=== PATIENT | male | born 1950 ===

== ENCOUNTER → 2022-05-19 00:56 | Outpatient (CLI) | payer MEDICARE, BC, SELFPAY ==
--- NOTE | 2022-05-19 10:30 | DI.US_ITS ---
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 Estimated ejection fraction is 60%. Wall m otion is normal Normal right ventricular size and systolic function The left atrium is moderately dilated. The right atrium is mildly dilated The aortic valve is calcified. Number of leaflets could not be accurately determined. There was no hemodynamically significant aortic stenosis, no aortic regurgitation Normal mitral valve with mild regurgitation Normal tricuspid valve with moderate regurgitation. Estimated right ventricular systolic pressure is 39 mmHg Dilated ascending aorta measuring 4 cm Wall motion Left Ventricle The left ventricle is normal size. The left ventricular systolic function is normal. The left ventric ular ejection fraction is within the normal range. There is normal left ventricular wall thickness. T here is normal LV segmental wall motion. There is no ventricular septal defect visualized. LVEF is 60 %. Right Ventricle The right ventricle is normal size. The right ventricular systolic function is normal. The RVSP is 38 .8_ mmHg. Atria Left atrium is moderately dilated. Right atrium is mildly dilated. The interatrial septum is intact with no evidence for an atrial septal defect. Aortic Valve Aortic valve is calcified. Aortic valve is trileaflet. There is no aortic valvular stenosis. No aorti c regurgitation is present. Mitral Valve The mitral valve is normal in structure. No evidence of mitral valve stenosis. Mild mitral regurgitat ion. Tricuspid Valve The tricuspid valve is normal in structure. There is no tricuspid valve stenosis. Moderate tricuspid regurgitation. Pulmonic Valve The pulmonary valve is normal in structure. There is no pulmonic valvular stenosis. Trace to mild pul jenifer regurgitation. Great Vessels The aortic root is normal in size. The ascending aorta is moderately dilated. Ascending aorta is not well visualized. The IVC collapses <50% with inspiration. Pericardium There is no pericardial effusion. 2D Dimensions IVSD d PLAX 1.16 cm M: 0.6-1.2 LV Vol A2C d MOD 125.4 mL LVPW d PLAX 1.16 cm M: 0.6 - 1.2 LV Vol A4C d MOD 149.5 mL LVID d PLAX 4.93 cm M: 4.2 - 5.8 LA vol/ BSA A2C s A-L 50.3 mL/m2 LVDs 3.45 cm M: 2.5 - 4.0 LA vol/ BSA A4C s A-L 47.1 mL/m2 Ao Root d 3.28 cm M: 3.1 - 3.7 LA Vol/ BSA Biplane s A-L 50.7 mL/m2 RA Area A4C 21.71 cm2 LA Area A4C s MOD 28.96 cm2 RA Vol/ BSA A4C s A-L 32.2 mL/m2 LA Area A2C s MOD 28.77 cm2 Ao Asc Diam d 4.00 cm M: 2.6 - 3.4 LV EF A4C MOD 55.5 % LV EF Teichholz 56.1 % LV EF A2C MOD 55.6 % LVEF (Jiménez's) 56.37 % M: 52 - 72 LV EF Biplane MOD 56.4 % LV Volume 103.10 mL M: 62 - 150 SV 79.62 mL LV Volume Index 47.51 mL/m2 M: 34 - 74 SV Index 36.61 mL/m2 LV Vol Biplane MOD 141.3 mL FS 29.35 % M-Mode TAPSE 2.33 cm (M/F) >1.7 LV Diastology MV E' medial 0.062 (>0.07 m/s) E/A Ratio 3.1 LV E/e MED 20.20 (<14) MV E Vmax 1.25 (0.4-1.3 m/s) MV E/E' medial 20.24 MV A Vmax 0.40 (0.4-1.3 m/s) MV E/A Ratio 3.00 Aortic Valve LVOT Area 3.87 cm2 AoV Area Vmax 1.61 cm2 LVOT Vmax 1.02 m/s AoV Area/ BSA (Vmax) 0.74 cm2/m2 LVOT Mean Naveen. 0.62 m/s RIVAS Mean Naveen. 1.39 cm2 LVOT Peak Grad 4.1 mmHg RIVAS Mean Naveen. Index 0.64 cm2/m2 LVOT Mean Grad 1.9 mmHg LVOT VTI 0.233 m LVOT Diam s 2.20 cm AoV Vmax 2.44 m/s Velocity Ratio 0.41 AoV Mean Naveen. 1.73 m/s AoV Peak Grad 23.9 mmHg LVOT SV 90.31 mL AoV Mean Grad 13.3 mmHg AoV VTI 0.539 m AoV Area VTI 1.67 cm2 AoV Area/ BSA (VTI) 0.77 cm/m2 Mitral Valve MV DT 181 (160-240 msec) MV PHT 53 msec MV Area PHT 4.18 cm2 MV VTI 0.314 m MV Area VTI 2.88 (4.0-6.0 cm2) Pulmonary Valve PV Vmax 1.22 (0.5-1.5 m/s) RVOT Peak Gr. 3.00 mmHg PV Peak Grad 5.9 mmHg RVOT Mean Gr. 1.60 mmHg PV Mean Grad 2.6 mmHg RVOT VTI 0.166 m PV VTI 0.243 m RVOT Vmax 0.87 m/s Tricuspid Valve TR Peak Grad 29.8 mmHg TR Vmax 2.73 m/s RA Pressure 8.00 mmHg RVSP (TR) 38.8 mmHg
== END ==
PROVIDERS: PCP Neuromusculoskeletal Medicine & OMM; Visit Provider Neuromusculoskeletal Medicine & OMM
DX: I25.10 Atherosclerotic heart disease of native coronary artery without angina pectoris (principal)
CPT/HCPCS: 93306

== ENCOUNTER → 2022-08-10 10:46 | Outpatient (BNVA) | payer MEDICARE, BC, SELFPAY | PROVIDERS: PCP Neuromusculoskeletal Medicine & OMM; Referring Provider Neuromusculoskeletal Medicine & OMM; Visit Provider Internal Medicine Cardiovascular Disease | DX: I25.10 Atherosclerotic heart disease of native coronary artery without angina pectoris (principal); I48.91 Unspecified atrial fibrillation; I35.0 Nonrheumatic aortic (valve) stenosis | CPT/HCPCS: 93005; 99203 ==

== ENCOUNTER 2022-08-10 11:10 | Outpatient (CLI) | payer MEDICARE, BC, SELFPAY ==
--- NOTE | 2022-08-10 11:00 | RT.EKG_ITS ---
APPROVED REPORT Exam: Resting ECG Reason for Exam: cardiology referral Patient Location: O HR:57 bpm ECG Measurements Heart Rate 57 AXIS [place] [id number] P [id number] QRSd 84 QRS 43 QT 429 T 49 QTc 418 Conclusion Atrial fibrillation...V-rate 46- 72, irreg A-activity Borderline low voltage, extremity leads...all extremity leads <0.6mV
== END 2022-08-10 11:11 | disposition home or self-care (01) ==
LOC: DI.CARD 11:11
PROVIDERS: PCP Neuromusculoskeletal Medicine & OMM; Visit Provider Internal Medicine Cardiovascular Disease
DX: I25.10 Atherosclerotic heart disease of native coronary artery without angina pectoris (principal); R94.31 Abnormal electrocardiogram [ECG] [EKG]; I48.91 Unspecified atrial fibrillation
CPT/HCPCS: 93010